=== PATIENT | female | born 1995 | race Caucasian/White ===

== ENCOUNTER 2019-07-28 11:14 | Emergency (ER) | payer SELFPAY ==
[~2019-07-28] VITALS: Ht 160 cm; Wt 72.7 kg
[~2019-07-28 11:14] MED LIST: IBUP-1542 PO
[2019-07-28 11:32] VITALS: BP 119/72; PULSE 107; RESP 16; Ht 160 cm; Wt 72.7 kg
== END 2019-07-28 12:10 | disposition home or self-care (01) ==
LOC: FTE 11:14
DX: M54.9 Dorsalgia, unspecified (principal)
CPT/HCPCS: 99282